=== PATIENT | female | born 1935 | race Caucasian/White ===

== ENCOUNTER → 2022-12-05 | Outpatient (CLI) | payer MEDICARE ==
[~2022-12-05] MED LIST: AMLO5 PO; IRBE150 PO; LEVSOD150 PO; METO50 PO; OMEP20ER PO; VERAMYST
== END | disposition home or self-care (01) ==
LOC: LAB SHORT 18:40 → LAB 18:40
DX: M54.50 Low back pain, unspecified (principal); R30.9 Painful micturition, unspecified
CPT/HCPCS: 87086